=== PATIENT | male | born 1990 | race Asian ===

== ENCOUNTER 2019-08-04 13:58 | Emergency (ER) | payer OTHER ==
[~2019-08-04] VITALS: Ht 170.2 cm; Wt 72.7 kg
[2019-08-04 16:00] VITALS: BP 119/74
== END 2019-08-04 16:00 | disposition home or self-care (01) | DRG 951 ==
LOC: ED 13:58
DX: Z20.828 Contact with and (suspected) exposure to other viral communicable diseases (principal)